=== PATIENT | female | born 1995 | race Caucasian/White ===

== ENCOUNTER 2016-08-20 13:17 | Emergency (ER) | payer BC ==
[2016-08-20 14:29] LABS: COLOR YELLOW; LEUKOCYTE ESTERASE,URINE 1+ (NEGATIVE); NITRITE,URINE POSITIVE (NEGATIVE); PH,URINE 6.5 (5.0-7.5)
[2016-08-20 14:39] LABS: BACTERIA 3+ /hpf (NONE SEEN)
--- NOTE | 2016-08-20 16:08 | UCPHY ---
H & P Time Seen by Provider: 08/20/16 15:30 Patient Type: New HPI/ROS: 20-year-old female presents complaining of burning with urination, frequency and also a sore throat Review of systems General no fever no chills no weakness HEENT no eye pain no eye discharge. No eye redness, positive sore throat Respiratory no cough, no shortness of breath Cardiac no chest pain, no peripheral edema GI no abdominal pain, no diarrhea, no constipation, no nausea, no vomiting no flank pain, no hematuria, positive dysuria, denies vaginal discharge Musculoskeletal no myalgias, no joint pain Heme no easy bruising, no easy bleeding Endo no polyuria, no polydipsia Skin no rashes, no pruritus Neuro no syncope, no dizziness, no headaches Psych is no suicidal ideation, no homicidal ideation Past Medical/Surgical History: Has had UTI and past Allergy to penicillin is hives, no history of anaphylaxis Social History: College student Smoking Status: Never smoked Physical Exam: 20-year-old female Alert and oriented in no acute distress nontoxic appearance, afebrile Atraumatic normocephalic Extraocular muscles intact, anicteric Neck-supple, positive anterior cervical lymphadenopathy mildly tender to palpation Oropharynx positive enlarged tonsils, erythematous, no uvular deviation, no purulent exudate, tolerating own secretions, no trismus Lungs clear to auscultation bilaterally Heart regular rate and rhythm Abdomen normoactive bowel sounds soft nontender Back no CVA tenderness Extremities no cyanosis clubbing edema Skin no rash Constitutional: Initial Vital Signs Temperature (C) 36.7 C 08/20/16 16:04 Heart Rate 72 08/20/16 16:04 Respiratory Rate 16 08/20/16 16:04 Blood Pressure 128/81 H 08/20/16 16:04 O2 Sat (%) 95 08/20/16 16:04 Allergies/Adverse Reactions: Penicillins Allergy (Verified 08/20/16 14:58) Home Medications: Medication Instructions Recorded Control Pill 08/20/16 Cephalexin [Cephalexin Oral Liquid] 500 mg PO BID #140 ml 08/20/16 Medical Decision Making ED Course/Re-evaluation: Patient seen and evaluated for dysuria and sore throat Physical exam benign Urinalysis positive for leuk esterase, nitrate, bacteria Impression UTI Pharyngitis Plan Cephalexin Phenazopyridine Follow-up PCP - Data Points Laboratory Results: 08/20/16 14:25 Urine Color YELLOW Urine Appearance HAZY Urine pH 6.5 (5.0-7.5) Ur Specific [place] 1.020 (1.002-1.030) Urine Protein 2+ H (NEGATIVE) Urine Ketones TRACE H (NEGATIVE) Urine Blood 1+ H (NEGATIVE) Urine Nitrate POSITIVE H (NEGATIVE) Urine Bilirubin NEGATIVE (NEGATIVE) Urine Urobilinogen 1.0 EU EU (0.2-1.0) Ur Leukocyte Esterase 1+ H (NEGATIVE) Urine RBC 1-3 /hpf /hpf (0-3) Urine WBC 10-15 /hpf H /hpf (0-3) Ur Epithelial Cells 2+ /lpf H /lpf (NONE-1+) Urine Bacteria 3+ /hpf H /hpf (NONE SEEN) Ur Culture Indicated? INDICATED H (NI) Urine Glucose NEGATIVE (NEGATIVE) Departure - Departure Disposition: Home, Routine, Self-Care Clinical Impression: Urinary tract infection, Pharyngitis Condition: Good Instructions: Urinary Tract Infection in Women (ED), Pharyngitis (ED) Referrals: NONE *PRIMARY CARE P,. [Primary Care Provider] - As per Instructions Prescriptions: Cephalexin [Cephalexin Oral Liquid] 500 mg PO BID #140 ml - PQRS PQRS Measurement: na
[2016-08-20 16:15] VITALS: BP 128/81; PULSE 72; RESP 16; TEMP 98.1; O2SAT 95
== END 2016-08-20 16:15 | disposition home or self-care (01) ==
LOC: CED 13:17
DX: N39.0 Urinary tract infection, site not specified (principal); J02.9 Acute pharyngitis, unspecified
CPT/HCPCS: 81003-PO; 81015-PO; G0463-PO